=== PATIENT | female | born 1975 | race Caucasian/White ===

== ENCOUNTER 2020-05-09 12:43 | Outpatient (CLI) | payer BC | END 2020-05-09 12:44 | disposition home or self-care (01) | LOC: BICRAD 12:43 | PROVIDERS: ATTEND Family Medicine | DX: M25.512 Pain in left shoulder (principal) ==

== ENCOUNTER 2024-01-18 09:50 | Outpatient (CLI) | payer BC | END 2024-01-18 09:51 | disposition home or self-care (01) | LOC: BICRAD 09:50 | DX: S60.552A Superficial foreign body of left hand, initial encounter (principal) ==

== ENCOUNTER 2024-02-11 14:17 | Outpatient (CLI) | payer BC ==
[2024-02-11 15:01] LABS: #Basophils 0.08 10x3/uL (0.0-0.2); %Basophils 1.1 % (0.0-1.0); %Eosinophils 1.4 % (0.0-10.0); %Lymphocytes 36.1 % (21.0-51.0); %Monocytes 7.3 % (0.0-10.0); %Neutrophils 53.8 % (42.0-75.0); Hematocrit 45.1 % (36.0-47.0); Hemoglobin 15.3 g/dL (12.0-16.0); Mean Corpuscular HGB CONC 33.9 g/dL (32.0-36.0); Mean Corpuscular Hemoglobin 30.8 pg (27.0-31.0); Mean Corpuscular Volume 90.9 fL (78.0-98.0); Mean Platelet Volume 9.3 fL (7.4-10.4); Platelet Count 259 10x3/uL (130-400); Red Blood Cell (RBC) Count 4.96 mill/uL (4.20-5.40)
== END 2024-02-11 14:18 | disposition home or self-care (01) ==
LOC: LABBT 14:17
PROVIDERS: ATTEND Orthopaedic Surgery
DX: Z01.812 Encounter for preprocedural laboratory examination (principal); S60.552A Superficial foreign body of left hand, initial encounter
CPT/HCPCS: 85025

== ENCOUNTER 2024-02-15 06:37 | Day surgery (SDC) | payer BC ==
[2024-02-11 14:31] VITALS: BMI 29.7
[2024-02-15] MEDS ORDERED: Bupivacaine PF 0.5% 30 ML VIAL ONE (07:01)
[2024-02-15] MEDS ORDERED: Midazolam HCl 2 mg/2 ml Vial ONE (07:59)
[2024-02-15] MEDS ORDERED: CEFAZOLIN 2 GM VIAL ONE (08:10)
[2024-02-15] MEDS ORDERED: Ketorolac Tromethamine 30 MG (1 mL) VIAL ONE (08:11)
[2024-02-15] MEDS ORDERED: PROPOFOL 20 ML ONE (08:11)
[2024-02-15] MEDS ORDERED: Ondansetron PF 4 MG/2 ML Vial ONE (08:11)
[2024-02-15] MEDS ORDERED: Lidocaine 1% PF 5 ML VIAL ONE (08:11)
== END 2024-02-15 10:30 | disposition home or self-care (01) ==
LOC: SDC 06:37
PROVIDERS: ATTEND Orthopaedic Surgery
PROC: 0JCK0ZZ Extirpation of Matter from Left Hand Subcutaneous Tissue and Fascia, Open Approach (ICD-10-PCS; principal; 2024-02-15)
DX: S61.442A Puncture wound with foreign body of left hand, initial encounter (principal); Z98.51 Tubal ligation status; W25.XXXA Contact with sharp glass, initial encounter
CPT/HCPCS: A6223; J0665; J1885; J2250; J2405; J2704